=== PATIENT | male | born 1970 | race Caucasian/White ===

== ENCOUNTER → 2016-07-01 | Outpatient (CLI) | payer BC | LOC: LAB 07:57 | DX: Z13.89 Encounter for screening for other disorder (principal) ==

== ENCOUNTER → 2016-08-28 | Outpatient (CLI) | payer BC | LOC: LAB 08-26 07:51 | DX: Z00.00 Encounter for general adult medical examination without abnormal findings (principal); Z12.5 Encounter for screening for malignant neoplasm of prostate; M1A.9XX0 Chronic gout, unspecified, without tophus (tophi) ==

== ENCOUNTER → 2017-07-03 | Outpatient (CLI) | payer BC | LOC: RAD 08:07 | DX: R80.0 Isolated proteinuria (principal); R93.8 Abnormal findings on diagnostic imaging of other specified body structures ==

== ENCOUNTER → 2020-09-27 | Outpatient (CLI) | payer BC ==
[2020-09-27 14:45] LABS: POTASSIUM 3.6 mmol/L (3.5-5.1)
[2020-09-27 14:46] LABS: CALCIUM 9.5 mg/dL (8.3-10.5)
== END ==
LOC: LAB 14:19
PROVIDERS: Internal Medicine Nephrology
DX: I12.9 Hypertensive chronic kidney disease with stage 1 through stage 4 chronic kidney disease, or unspecified chronic kidney disease (principal); N18.1 Chronic kidney disease, stage 1

== ENCOUNTER → 2021-11-30 | Outpatient (CLI) | payer BC | LOC: AMSURD 10:21 | DX: R07.89 Other chest pain (principal) ==

== ENCOUNTER → 2021-11-30 | Outpatient (REF) | LOC: LAB 10:29 | DX: R07.89 Other chest pain (principal) ==

== ENCOUNTER → 2021-12-05 | Outpatient (CLI) | payer BC | LOC: RAD 09:07 | DX: R79.1 Abnormal coagulation profile (principal) | CPT/HCPCS: Q9967 ==

== ENCOUNTER → 2023-09-24 | Outpatient (CLI) | payer BC ==
[2023-09-24 08:13] LABS: ALBUMIN 4.2 g/dL (3.5-5.0)
[2023-09-24 08:14] LABS: CALCIUM 9.5 mg/dL (8.3-10.5)
[2023-09-24 08:16] LABS: TOTAL PROTEIN 6.7 g/dL (6.4-8.3)
[2023-09-24 08:18] LABS: TOTAL BILIRUBIN 0.4 mg/dL (0.2-1.2)
[2023-09-24 08:22] LABS: BASO # 0.03 K/mm3 (0.02-0.10); EOS # 0.23 K/mm3 (0.04-0.40); EOS % 3.3 % (0.0-4.0); HEMATOCRIT 45.9 % (42.0-52.0); HEMOGLOBIN 15.7 g/dL (13.5-18.0); LYMPH# 1.49 K/mm3 (1.50-4.00); MEAN CELL VOLUME 89 fl (78-100); MEAN CORPUSCULAR HEMOGLOBIN 30 pg (27-31); MEAN CORPUSCULAR HGB CONC 34 g/dL (33-37); MEAN PLATELET VOLUME 10.1 fl (7.4-10.4); MONO # 0.59 K/mm3 (0.20-0.80); NEU # 4.61 K/mm3 (1.40-6.50); PLATELET COUNT 225 K/mm3 (130-400); RED BLOOD COUNT 5.18 M/mm3 (4.20-5.60); RED CELL DISTRIBUTION WIDTH 12.4 % (11.5-14.5)
[2023-09-24 08:23] LABS: MAGNESIUM 1.99 mg/dL (1.60-2.60)
[2023-10-25 14:23] LABS: CREATININE OTHER SOURCE 132.7
== END ==
LOC: LAB 07:45
PROVIDERS: Internal Medicine
DX: Z00.00 Encounter for general adult medical examination without abnormal findings (principal); Z12.5 Encounter for screening for malignant neoplasm of prostate; N18.1 Chronic kidney disease, stage 1; N28.81 Hypertrophy of kidney; R80.8 Other proteinuria; M10.00 Idiopathic gout, unspecified site

== ENCOUNTER → 2023-12-03 | Day surgery (SDC) | payer BC | END | disposition home or self-care (01) | LOC: MSO 08:52 | DX: Z12.11 Encounter for screening for malignant neoplasm of colon (principal); K57.30 Diverticulosis of large intestine without perforation or abscess without bleeding | CPT/HCPCS: 00812; J2704; J7120 ==